=== PATIENT | male | born 1940 | race Caucasian/White ===

== ENCOUNTER → 2016-10-28 | Outpatient (CLI) | payer OTHER ==
[2014-07-14 08:11] VITALS: BP 186/79
--- NOTE | 2016-10-28 15:00 | KCIC ---
PROCEDURE PA and lateral chest radiographs 10/28/2016 HISTORY Shortness of breath. FINDINGS PA and lateral digital radiographs of the chest were obtained. Comparison study is dated 03/03/2016. The cardiac silhouette is normal in size. The thoracic aorta is mildly tortuous. Emphysematous changes are seen bilaterally. No acute pulmonary infiltrate is noted. No pneumothorax or pleural effusion is seen. Degenerative changes are seen involving the thoracic spine. Epmw-kj-wktfircp S-shaped scoliosis of the thoracolumbar spine is noted. IMPRESSION Emphysematous changes. No acute pulmonary infiltrate is seen. Electronically signed by: Dustin Mayen MD (Oct 28, 2016 14:59:59)
== END | disposition home or self-care (01) ==
LOC: KCIC 12:39
PROVIDERS: ATTEND Family Medicine
DX: J43.9 Emphysema, unspecified (principal)
CPT/HCPCS: 71020

== ENCOUNTER → 2016-11-23 | Outpatient (CLI) | payer OTHER ==
[2014-07-14 08:11] VITALS: BP 186/79
--- NOTE | 2016-11-23 11:08 | CARD ---
APPROVED REPORT EXAM: Two-dimensional and M-mode echocardiogram with Doppler and color Doppler. Other Information Quality : Average Rhythm : NSR INDICATION Dyspnea Chest Pain 2D DIMENSIONS RVDd2.4 (2.9-3.5cm)Left Atrium(2D)3.3 (1.6-4.0cm) IVSd1.1 (0.7-1.1cm)Aortic Root(2D)3.0 (2.0-3.7cm) LVDd3.1 (3.9-5.9cm)LVOT Diameter2.2 (1.8-2.4cm) PWd1.1 (0.7-1.1cm)LVDs2.1 (2.5-4.0cm) FS (%) 32.5 %SV24.3 ml LVEF(%)62.3 (>50%) Aortic Valve AoV Peak Husam.130.8cm/sAoV VTI21.9cm AO Peak GR.6.8mmHgLVOT Peak Husam.127.1cm/s LVOT VTI 23.21cmAO Mean GR.3mmHg SERGIO (VMAX)3.62ex8EEC (VTI)3.93cm2 Mitral Valve MV E Iradjcle20.8cm/sMV DECEL TZED042xe MV A Vlpkyvkg527.6cm/sMV E Mean Gr.2mmHg MV XXV470qrW/A Ratio0.6 MV A Fqvxnzrk42vaVOH (PHT)2.10cm2 TDI E/Lateral E'7.1E/Medial E'9.1 Pulmonary Valve PV Peak Xgbwrtcp715.9cm/sPV Peak Grad.5mmHg RVOT VTI12.5cm LEFT VENTRICLE The left ventricle is normal size. There is normal left ventricular wall thickness. Left ventricle sy stolic function is normal. The Ejection Fraction is 60-65%. There is normal LV segmental wall motion. Tissue Doppler imaging reveals mild left ventricular diastolic dysfunction. Transmitral Doppler flow pattern is Grade I-abnormal relaxation pattern. There is no ventricular septal defect visualized. RIGHT VENTRICLE The right ventricle is normal size. The right ventricular systolic function is normal. ATRIA The left atrium size is normal. The right atrium size is normal. The interatrial septum is intact wit h no evidence for an atrial septal defect or patent foramen ovale as noted on 2-D or Doppler imaging. AORTIC VALVE The aortic valve is normal in structure and function. The aortic valve is trileaflet. Doppler and Col or Flow revealed no significant aortic regurgitation. There is no significant aortic valvular stenosi s. MITRAL VALVE The mitral valve is normal in structure and function. There is no mitral valve stenosis. Doppler and Color Flow revealed no mitral valve regurgitation noted. TRICUSPID VALVE The tricuspid valve is normal in structure and function. Doppler and Color Flow revealed no tricuspid valve regurgitation noted. Unable to assess PA pressure. There is no tricuspid valve stenosis. PULMONIC VALVE The pulmonic valve is not well visualized. Doppler and Color Flow revealed no pulmonic valvular regur gitation. There is no pulmonic valvular stenosis. GREAT VESSELS The aortic root is normal in size. Pulmonary veins not well visualized. The IVC is normal in size and collapses >50% with inspiration. PERICARDIAL EFFUSION There is no evidence of significant pericardial effusion. Critical Notification Critical Value: No <Conclusion> Left ventricle systolic function is normal. The Ejection Fraction is 60-65%. There is normal LV segmental wall motion. Transmitral Doppler flow pattern is Grade I-abnormal relaxation pattern. There is no evidence of significant pericardial effusion.
== END | disposition home or self-care (01) ==
LOC: ECHO 08:50
PROVIDERS: ATTEND Family Medicine
DX: R06.02 Shortness of breath (principal); R07.9 Chest pain, unspecified; R06.00 Dyspnea, unspecified
CPT/HCPCS: 93306

== ENCOUNTER → 2016-11-30 | Outpatient (CLI) | payer OTHER ==
[2014-07-14 08:11] VITALS: BP 186/79
--- NOTE | 2016-11-30 15:17 | RAD ---
Examination: Ultrasound kidneys History: History of benign prostatic hypertrophy with lower urinary tract infection. Comparison: None available Findings: The right kidney measures 10.7 x 3.4 x 5.3 cm. The left kidney measures 11.3 x 4.9 x 5.2 cm. The urinary bladder is mildly distended. Cystic structures is identified in the bilateral kidneys with the largest measuring 3.1 cm in the right and 5.6 cm in the left probably cysts however the left kidney cystic structure likely contain septations within. The echogenicity in the bilateral kidneys appear slightly increased, likely due to medical renal disease. Impression: 1. Echogenic appearing bilateral kidneys likely medical renal disease. 2. Cystic structures identified in the bilateral kidneys probably cysts however the left cyst may contain septations. Follow-up examination is recommended to document stability.
== END | disposition home or self-care (01) ==
LOC: US 13:00
PROVIDERS: ATTEND Urology
DX: N40.1 Benign prostatic hyperplasia with lower urinary tract symptoms (principal)
CPT/HCPCS: 76770

== ENCOUNTER → 2017-02-05 | Outpatient (CLI) | payer MEDICARE, OTHER ==
[2014-07-14 08:11] VITALS: BP 186/79
[~2017-02-05] MED LIST: ASPI-482 PO; DOXA8TAB59 PO; HYDR12.58 PO; IOHEXOL 300 MG/ML 100ML VIAL. IV ONE
--- NOTE | 2017-02-05 15:12 | KCIC ---
CT abdomen and pelvis with and without contrast - urogram protocol Indication: Asymptomatic microscopic hematuria. Urinary frequency.. . Technique: Images obtained before, during and after contrast administration through both kidneys. Precontrast and delayed images through the pelvis. 3-D reconstructions of the urinary tracts. Comparison:None available Exposure: One or more of the following individualized dose reduction techniques were utilized for this examination: 1. Automated exposure control 2. Adjustment of the mA and/or kV according to patient size 3. Use of iterative reconstruction technique. FINDINGS: Kidneys: No evidence of hydronephrosis or obstructive calculus. Numerous low-density lesions identified within both kidneys. The largest is on the left parapelvic region and measures 5.1 cm. The larger lesions in both kidneys measure water density, compatible with cysts. Urinary bladder: Mild wall thickening of the distal urinary bladder. Prostate gland: 4.5 cm diameter with central calcifications. There is a midline defect, may be due to prior TURP. Lower thorax: Mild fibrosis in the lung bases. Mild coronary calcification. Pneumoperitoneum:No gross pneumoperitoneum. Liver: Only barely included on the dynamic images. Fully included on the precontrast and delayed images which are less accurate but demonstrate no obvious abnormality. Spleen: Not enlarged. Pancreas: Unremarkable Adrenals:No evidence of mass. Gallbladder: Surgically absent. Aorta: Calcified and ectatic without aneurysm. Renal arteries are calcified and mildly dilated, greater on the left, which measures 11 mm transverse. Lymph nodes: No significant enlargement GI tract: Small hiatal hernia. Colonic diverticulosis. No evidence of pericolonic acute inflammatory type change. No evidence of obstruction. Appendix not clearly visualized. Limited exam without oral contrast. Ascites: No gross ascites. Degenerative changes at the right hip with severe superior joint space narrowing and subchondral cysts. There appears to be a right hip joint effusion. Smaller left hip joint effusion. Thoracolumbar spondylosis with a mild scoliosis. IMPRESSION: 1. No evidence of urinary tract obstructive calculus. 2. Numerous renal lesions bilaterally, most compatible with cysts. 3. Midline defect of the prostate, presumably due to TURP. 4. Mild dilatation/ectasia of renal arteries left greater than right. 5. Right hip primary osteoarthritis. Hip joint effusions or synovitis, greater on the right. Electronically signed by: Moise Stern MD (02/05/2017 3:09 PM) [facility]
== END | disposition home or self-care (01) ==
LOC: KCIC CT 11:34
PROVIDERS: ATTEND Urology
DX: N28.1 Cyst of kidney, acquired (principal); M16.11 Unilateral primary osteoarthritis, right hip; M25.451 Effusion, right hip
CPT/HCPCS: 74178; 82565; Q9967

== ENCOUNTER 2018-05-13 12:24 | Emergency (ER) | payer OTHER ==
[~2018-05-13] VITALS: Ht 162.6 cm; Wt 72.6 kg
[~2018-05-13 12:24] MED LIST changes: -IOHEXOL 300 MG/ML 100ML VIAL. IV ONE
[2018-05-13 12:41] VITALS: BP 173/95
[2018-05-13] MEDS ORDERED: HYDROcodone/APAP 5/325MG 1 TAB TABLET PO ONE (14:00)
--- NOTE | 2018-05-13 14:16 | PHYS DOC ---
Past Medical History Past Medical History: GERD Past Surgical History: Cholecystectomy Alcohol Use: Rarely Drug Use: None Adult General Chief Complaint Chief Complaint: WRIST PAIN HPI HPI 77-year-old male presenting to the emergency department today with left wrist pain for 3 months. Pain comes and goes. It is worse when he tries to get out of his wheelchair. It is sharp and nonradiating. He has been trying oral pain medications at home without much relief. He did not take anything today. Review of systems is negative for fevers or chills. All other review of systems is negative unless otherwise noted in history of present illness. ED course: 77-year-old female presenting to the emergency department today with left wrist pain that is chronic. Vitals are unremarkable other than mild hypertension. On examination there is no evidence of trauma to the wrist. X- rays obtained which showed no acute fracture or dislocation. Scapholunate ligamentous injury of indeterminate age. I spoke with orthopedic surgery who asked me to place the patient in a wrist splint. Patient was placed in a wrist splint to follow-up with them on Wednesday. The patient has been examined and was not found to have an emergency medical condition. The patient was then discharged home in stable condition to follow up with their primary care physician over the next 2-3 days. They were to return if their symptoms worsened or if they were concerned for any reason. They were also instructed to return to the emergency department if they were unable to get the recommended and appropriate follow-up. [id number]-fv-hczm discharge instructions and return precautions were given. Patient's questions were answered to their satisfaction. Patient is comfortable with plan. Review of Systems Review of Systems SEE ABOVE. Current Medications Current Medications Current Medications Medications (Trade) Dose Ordered Sig/[facility] Start Time Stop Time Status Last Admin Dose Admin Acetaminophen/ Hydrocodone Bitart (Lortab 5/325) 2 tab 1X ONCE 05/13/18 14:00 05/13/18 14:03 DC 05/13/18 14:14 2 TAB Allergies Allergies Allergies Coded Allergies Type Severity Reaction Last Updated Verified No Known Drug Allergies 07/14/14 No Physical Exam Physical Exam SEE ABOVE Constitutional: Well developed, well nourished, no acute distress, non-toxic appearance. [] HENT: Normocephalic, atraumatic, bilateral external ears normal, oropharynx moist, no oral exudates, nose normal. Eyes: PERRLA, EOMI, conjunctiva normal, no discharge. [] Neck: Normal range of motion, no tenderness, supple, no stridor. Cardiovascular:Heart rate regular rhythm, no murmur Lungs & Thorax: Bilateral breath sounds clear to auscultation Abdomen: Bowel sounds normal, soft, no tenderness, no masses, no pulsatile masses. Skin: Warm, dry, no erythema, no rash. Back: No tenderness, no CVA tenderness. Extremities: The patient's left wrist is mildly tender to palpation. Mild pain with acid range of motion. The patient is neurovascularly intact with 2 second cap refill and normal motor sensory function of the left hand. Nontender at the elbow and shoulder proximally. The remainder the extremities are nontender with normal range of motion and neurovascularly intact. Neurologic: Alert and oriented X 3, normal motor function, normal sensory function, no focal deficits noted. Psychologic: Affect normal, judgement normal, mood normal. Current Patient Data Vital Signs Vital Signs Date Time Temp Pulse Resp B/P (MAP) Pulse Ox O2 Delivery O2 Flow Rate FiO2 05/13/18 14:14 16 05/13/18 12:41 98.5 83 173/95 (121) 95 Room Air 98.5 EKG EKG [] Radiology/Procedures Radiology/Procedures [] Course & Med Decision Making Course & Med Decision Making Pertinent Labs and Imaging studies reviewed. (See chart for details) [] Dragon Disclaimer Dragon Disclaimer This electronic medical record was generated, in whole or in part, using a voice recognition dictation system. Departure Departure Impression: Primary Impression: Wrist pain Disposition: HOME, SELF-CARE Condition: STABLE Referrals: ADRIAN WEIR MD (PCP) Additional Instructions: Thank you for allowing us to participate in your care today. Return to the emergency department you have any new or worsening symptoms, or if you are concerned for any reason. Return to emergency department if you have any new or concerning symptoms including but not limited to fever, chills, nausea, vomiting, intractable pain, any new rashes, chest pain, shortness of air , uncontrolled bleeding, difficulty breathing, and/or vision loss. Follow up with ortho surgery on Wednesday. Call your Primary Doctor tomorrow and inform them of your visit today. If you do not have a primary care provider we are happy to provide you with a list of our primary care providers contact information. This condition should be evaluated by your primary care physician and any recommended consulting services for continued management within 2-3 days after discharge. If at any time, you are having difficulty getting into your primary care doctor or a specialist, return to the emergency department. You may have been prescribed medication or given medication in the emergency department that can change in your level of thinking and ability to operate machinery. Many prescribed medications can cause this. Some commonly prescribed medications include hydrocodone, ativan, and benadryl. Be sure to check with your pharmacist and ask if the medications you've prescribed can affect your level of consciousness. I recommend not operating heavy machinery or driving while on medication such as these. Scripts Hydrocodone Bit/Acetaminophen (HYDROCODONE-APAP 5-325 ) 1 Each Tablet 1 TAB PO PRN Q8HRS PRN for SEVERE PAIN, #8 TAB 0 Refills Prov: DAVIE MAURICE MD 05/13/18 DAVIE MAURICE MD May 13, 2018 14:16
--- NOTE | 2018-05-13 14:21 | RAD ---
Left wrist, 3 views, 05/13/2018: HISTORY: Wrist pain There is patchy bony demineralization. No fracture is identified. There is widening of the distance between the scaphoid and lunate bones compatible with ligamentous injury of indeterminate age. There are mild scattered degenerative changes including the first CMC joint. Moderate subcutaneous edema is evident. Arterial calcifications are present. IMPRESSION: 1. Patchy bony demineralization. 2. Mild degenerative change. 3. Evidence of scapholunate ligament injury of indeterminate age. Electronically signed by: Favian Houser MD (05/13/2018 2:18 PM) [facility]
[2018-05-13] MEDS ORDERED: HYDR-2758 PO (15:21)
== END 2018-05-13 17:29 | disposition home or self-care (01) ==
LOC: ER 12:24
DX: M25.532 Pain in left wrist (principal); I10 Essential (primary) hypertension; K21.9 Gastro-esophageal reflux disease without esophagitis
CPT/HCPCS: 73110; 99284

== ENCOUNTER 2020-01-26 09:20 | Inpatient (IN) | payer MEDICARE, OTHER ==
[~2020-01-26] VITALS: Ht 160 cm; Wt 66.2 kg
[~2020-01-26 09:20] MED LIST changes: +GUAI100L12 PO; +HYDR-2761 PO; +HYDR-2769 PO; +OSEL75CA PO
--- NOTE | 2020-01-26 10:33 | PHYS DOC ---
Past Medical History Past Medical History: Anxiety, GERD, Hypertension, Other Additional Past Medical Histor: LT FIB FX, R femur fx, gout, paraplegia, post polio syndrome, OA, Past Surgical History: Cholecystectomy, Other Additional Past Surgical Histo: L FEMUR ORIF Smoking Status: Former Smoker Alcohol Use: Occasionally Drug Use: None General Adult EDM: Chief Complaint: LOWER EXT PAIN HPI: HPI: 79-year-old male presenting the emergency department today with left thigh pain. Started today. He has a history of a fracture in his left thigh that he reports they treated medically without surgery. Is been about 8 weeks since he had his fracture and has been healing well. He has a longstanding history of polio. He woke up this morning with the pain in his thigh. He denies any numbness or weakness in his left or right foot. He denies any pain on his right side. The pain is in the thigh and radiates into the left hip and knee. It is a sharp shooting pain that is moderate nonradiating without leaving factors. He denies any recent injuries. Review of systems negative for numbness weakness tingling headache chest pain shortness of breath fevers cough. All other review of systems negative. ED course: 79-year-old male presenting with left-sided leg pain/thigh pain. On arrival he is mildly tachycardic at about 110. Afebrile. Satting well on room air. On examination he is well-appearing and nontoxic. He has some tenderness along the left mid to distal thigh. Normal range of motion the knee. Not able to move the left hip due to pain. Palpable pulse distally which is a cap refill. Nontender distal leg with 2-second cap refill. The right leg is nontender with normal range of motion of the joints. X-ray shows previously known fracture. His pain is directly where his fracture is which was sustained a few months ago. We will admit the patient for pain control and have orthopedic surgery see the patient to clarify the patient's plan. Heart Score: Risk Factors: Risk Factors: DM, Current or recent (<one month) smoker, HTN, HLP, family history of CAD, obesity. Risk Scores: Score 0 - 3: 2.5% MACE over next 6 weeks - Discharge Home Score 4 - 6: 20.3% MACE over next 6 weeks - Admit for Clinical Observation Score 7 - 10: 72.7% MACE over next 6 weeks - Early Invasive Strategies Allergies: Allergies: Allergies Coded Allergies Type Severity Reaction Last Updated Verified No Known Drug Allergies 07/14/14 No Physical Exam: PE: Constitutional: Well developed, well nourished, no acute distress, non-toxic appearance. [] HENT: Normocephalic, atraumatic, bilateral external ears normal, oropharynx moist, no oral exudates, nose normal. [] Eyes: PERRLA, EOMI, conjunctiva normal, no discharge. [] Neck: Normal range of motion, no tenderness, supple, no stridor. [] Cardiovascular:Heart rate regular rhythm, no murmur [] Lungs & Thorax: Bilateral breath sounds clear to auscultation [] Abdomen: Bowel sounds normal, soft, no tenderness, no masses, no pulsatile masses. [] Skin: Warm, dry, no erythema, no rash. [] Back: No tenderness, no CVA tenderness. [] Extremities: ABOVE Neurologic: Alert and oriented X 3, normal motor function, normal sensory function, no focal deficits noted. [] Psychologic: Affect normal, judgement normal, mood normal. [] Current Patient Data: Vital Signs: Vital Signs Date Time Temp Pulse Resp B/P (MAP) Pulse Ox O2 Delivery O2 Flow Rate FiO2 01/26/20 09:20 98.6 111 20 144/94 (111) 98 Room Air 98.6 EKG: EKG: [] Radiology/Procedures: Radiology/Procedures: [] Course & Med Decision Making: Course & Med Decision Making Pertinent Labs and Imaging studies reviewed. (See chart for details) [] Dragon Disclaimer: Dragon Disclaimer: This electronic medical record was generated, in whole or in part, using a voice recognition dictation system. Departure Departure Impression: Primary Impression: Closed fracture of right distal femur Disposition: ADMITTED INPATIENT Admitting Physician: HIMS Condition: STABLE Referrals: ADRIAN WEIR MD (PCP) Justicifation of Admission Dx: Justifications for Admission: Justification of Admission Dx: Yes Fracture: Fracture DAVIE MAUIRCE MD Jan 26, 2020 10:33
[2020-01-26 11:07] LABS: BASO % 0 % (0-3); EOS % 0 % (0-3); HEMATOCRIT 39.7 % (39.0-53.0); HEMOGLOBIN 13.8 g/dL (13.0-17.5); LYMPH # 1.2 x10^3/uL (1.0-4.8); LYMPH % 11 % (24-48); MEAN CORPUSCULAR HEMOGLOBIN 34 pg (25-35); MEAN CORPUSCULAR HGB CONC 35 g/dL (31-37); MEAN CORPUSCULAR VOLUME 98 fL (79-100); MONO # 0.7 x10^3/uL (0.0-1.1); MONO % 7 % (0-9); NEUT % 82 % (31-73); PLATELET COUNT 197 x10^3/uL (140-400); RED BLOOD COUNT 4.06 x10^6/uL (4.30-5.70); RED CELL DISTRIBUTION WIDTH 14.7 % (11.5-14.5); WHITE BLOOD COUNT 10.9 x10^3/uL (4.0-11.0)
[2020-01-26 11:17] LABS: CALCIUM 9.3 mg/dL (8.5-10.1); GFR 72.3; POTASSIUM 3.9 mmol/L (3.5-5.1)
[2020-01-26 11:23] LABS: ALBUMIN 3.1 g/dL (3.4-5.0); ALBUMIN/GLOBULIN RATIO 0.6 (1.0-1.7); TOTAL BILIRUBIN 1.3 mg/dL (0.2-1.0); TOTAL PROTEIN 7.9 g/dL (6.4-8.2)
--- NOTE | 2020-01-26 11:39 | RAD ---
Examination: Frontal view the pelvis with 2 views the left hip, 2 views of the left femur and 2 views of the left femur HISTORY: History of left hip pain, prior fracture COMPARISON: 11/29/2019. Findings/ impression: The bilateral femoral heads within the acetabula. Mild displaced Fracture of the distal femoral diaphysis in the supracondylar region likely chronic fracture. Nondisplaced fracture of the proximal tibia identified with surrounding sclerosis likely old fracture. Electronically signed by: Memo Chu MD (01/26/2020 11:37 AM) [id number]
[2020-01-26 15:10] VITALS: BP 150/77
[2020-01-26] MEDS: fentaNYL PF VIAL 100 MCG/2 ML VIAL IV PRN ×3 (15:21→20:00)
[2020-01-26 19:50] VITALS: BP 118/73
[2020-01-26 23:00] VITALS: BP 107/59
[2020-01-26] MEDS: fentaNYL PF VIAL 100 MCG/2 ML VIAL IVP PRN (23:05)
[2020-01-27 03:00] VITALS: BP 106/63
[2020-01-27] MEDS: fentaNYL PF VIAL 100 MCG/2 ML VIAL IVP PRN ×6 (03:00→19:37)
[2020-01-27 07:15] VITALS: BP 125/65
--- NOTE | 2020-01-27 09:43 | PDOC2 ---
CONSULT Date of Consult Date of Consult DATE: 01/27/20 TIME: 09:39 Reason for Consult Reason for Consult: Left distal femur fracture Referring Physician Referring Physician: Foster Identification/Chief Complaint Chief Complaint Left knee pain Source Source: Patient History of Present Illness Reason for Visit: Patient is a pleasant 79-year-old paraplegic who had seen in consultation a short while ago for a left distal femur fracture. He developed pain with this when he was at home and was unable to manage the pain and take care of himself at home so he was brought in for admission. He tells me that his knee is quite sore and is having difficulty transferring and sitting up secondary to his knee pain. He denies any new injuries. Past Medical History Cardiovascular: No pertinent hx Pulmonary: No pertinent hx, COPD CENTRAL NERVOUS SYSTEM: Other GI: No pertinent hx Heme/Onc: No pertinent hx Musculoskeletal: Muscle atrophy, Weakness, Swelling, Other Rheumatologic: No pertinent hx Infectious disease: Other Past Surgical History Past Surgical History: No pertinent history Family History Family History: No Significant, High Cholestrol, Hypertension Social History ALCOHOL: none Drugs: None Lives: Alone Domestic Violence: Neg Current Medications Current Medications Current Medications Fentanyl Citrate (Fentanyl 2ml Vial) 50 mcg PRN Q30MIN PRN IV SEVERE PAIN 7-10 Last administered on 01/26/20at 20:00; Start 01/26/20 at 12:00; Stop 01/26/20 at 20:00; Status DC Fentanyl Citrate (Fentanyl 2ml Vial) 75 mcg PRN Q3HRS PRN IVP Pain Last adm inistered on 01/27/20at 07:06; Start 01/26/20 at 20:30 Active Scripts Active Guaifenesin 100 Mg/5 Ml Liquid 200 Mg PO PRN Q4HRS PRN 5 Days Hydrocodone-Apap 10-325 (Hydrocodone Bit/Acetaminophen) 1 Tab Tablet 1 Tab PO PRN Q3HRS PRN 30 Days Reported Hydrochlorothiazide Tablet (Hydrochlorothiazide) 12.5 Mg Tablet 1 Tab PO DAILY Doxazosin Mesylate 8 Mg Tablet 1 Tab PO DAILY Allergies Allergies: Coded Allergies: No Known Drug Allergies (Unverified , 07/14/14) ROS General: No: Chills, Night Sweats, Fatigue, Malaise, Appetite, Other PSYCHOLOGICAL ROS: No: Anxiety, Behavioral Disorder, Concentration difficultie, Decreased libido, Depression, Disorientation, Hallucinations, Hostility, Irritablity, Memory difficulties, Mood Swings, Obsessive thoughts, Physical abuse, Sexual abuse, Sleep disturbances, Suicidal ideation, Other Eyes: No Blurry vision, No Decreased vision, No Double vision, No Dry eyes, No Excessive tearing, No Eye Pain, No Itchy Eyes, No Loss of vision, No Photophobia, No Scotomata, No Uses contacts, No Uses glasses, No Other HEENT: No: Heacaches, Visual Changes, Hearing change, Nasal congestion, Nasal discharge, Oral lesions, Sinus pain, Sore Throat, Epistaxis, Sneezing, Snoring, Tinnitus, Vertigo, Vocal changes, Other ALLERGY AND IMMUNOLOGY: No: Hives, Insect Bite Sensitivity, Itchy/Watery Eyes, Nasal Congestion, Post Nasal Drip, Seasonal Allergies, Other Hematological and Lymphatic: No: Bleeding Problems, Blood Clots, Blood Transfusions, Brusing, Night Sweats, Pallor, Swollen Lymph Nodes, Other ENDOCRINE: No: Breast Changes, Galactorrhea, Hair Pattern Changes, Hot Flashes, Malaise/lethargy, Mood Swings, Palpitations, Polydipsia/polyuria, Skin Changes, Temperature Intolerance, Unexpected Weight Changes, Other Respiratory: No: Cough, Hemoptysis, Orthopnea, Pleuritic Pain, Shortness of breath, SOB with excertion, Sputum Changes, Stridor, Tachypnea, Wheezing, Other Cardiovascular: No Chest Pain, No Palpitations, No Orthopnea, No Paroxysmal Noc. Dyspnea, No Edema, No Lt Headedness, No Other Gastrointestinal: No Nausea, No Vomiting, No Abdominal Pain, No Diarrhea, No Constipation, No Melena, No Hematochezia, No Other Genitourinary: No Dysuria, No Frequency, No Incontinence, No Hematuria, No Retention, No Discharge, No Urgency, No Pain, No Flank Pain, No Other, No , No , No , No , No , No , No Musculoskeletal: Yes Gait Disturbance Neurological: Yes Gait Disturbance, Yes Numbness/Tingling Skin: No Dry Skin, No Eczema, No Hair Changes, No Lumps, No Mole Changes, No Mottling, No Nail Changes, No Pruritus, No Rash, No Skin Lesion Changes, No Other, No Acne Physical Exam General: Alert, Oriented X3 HEENT: Atraumatic, EOMI Lungs: Other (Respirations unlabored with symmetric chest) Heart: Regular rate Abdomen: Soft, No tenderness Extremities: Other (Mild edema around ankles) Skin: No rashes Neuro: Normal speech, Strength at 5/5 X4 ext, Sensation intact, Other (Normal motor and sensation present bilateral upper extremities) Psych/Mental Status: Mental status NL, Mood NL MUSCULOSKELETAL: Other (He does have some mild swelling and tenderness around his left knee on exam today.) Vitals VITALS Vital Signs Date Time Temp Pulse Resp B/P (MAP) Pulse Ox O2 Delivery O2 Flow Rate FiO2 01/27/20 07:36 Room Air 01/27/20 07:15 98.7 79 16 125/65 (85) 93 98.7 Labs Labs Laboratory Tests Test 01/26/20 10:50 White Blood Count 10.9 x10^3/uL (4.0-11.0) Red Blood Count 4.06 x10^6/uL (4.30-5.70) Hemoglobin 13.8 g/dL (13.0-17.5) Hematocrit 39.7 % (39.0-53.0) Mean Corpuscular Volume 98 fL (79-100) Mean Corpuscular Hemoglobin 34 pg (25-35) Mean Corpuscular Hemoglobin Concent 35 g/dL (31-37) Red Cell Distribution Width 14.7 % (11.5-14.5) Platelet Count 197 x10^3/uL (140-400) Neutrophils (%) (Auto) 82 % (31-73) Lymphocytes (%) (Auto) 11 % (24-48) Monocytes (%) (Auto) 7 % (0-9) Eosinophils (%) (Auto) 0 % (0-3) Basophils (%) (Auto) 0 % (0-3) Neutrophils # (Auto) 9.0 x10^3/uL (1.8-7.7) Lymphocytes # (Auto) 1.2 x10^3/uL (1.0-4.8) Monocytes # (Auto) 0.7 x10^3/uL (0.0-1.1) Eosinophils # (Auto) 0.0 x10^3/uL (0.0-0.7) Basophils # (Auto) 0.0 x10^3/uL (0.0-0.2) Sodium Level 134 mmol/L (136-145) Potassium Level 3.9 mmol/L (3.5-5.1) Chloride Level 97 mmol/L (98-107) Carbon Dioxide Level 27 mmol/L (21-32) Anion Gap 10 (6-14) Blood Urea Nitrogen 18 mg/dL (8-26) Creatinine 1.0 mg/dL (0.7-1.3) Estimated GFR (Cockcroft-Gault) 72.3 BUN/Creatinine Ratio 18 (6-20) Glucose Level 131 mg/dL (70-99) Calcium Level 9.3 mg/dL (8.5-10.1) Total Bilirubin 1.3 mg/dL (0.2-1.0) Aspartate Amino Transf (AST/SGOT) 30 U/L (15-37) Alanine Aminotransferase (ALT/SGPT) 22 U/L (16-63) Alkaline Phosphatase 165 U/L (46-116) Total Protein 7.9 g/dL (6.4-8.2) Albumin 3.1 g/dL (3.4-5.0) Albumin/Globulin Ratio 0.6 (1.0-1.7) Laboratory Tests Test 01/26/20 10:50 White Blood Count 10.9 x10^3/uL (4.0-11.0) Red Blood Count 4.06 x10^6/uL (4.30-5.70) Hemoglobin 13.8 g/dL (13.0-17.5) Hematocrit 39.7 % (39.0-53.0) Mean Corpuscular Volume 98 fL (79-100) Mean Corpuscular Hemoglobin 34 pg (25-35) Mean Corpuscular Hemoglobin Concent 35 g/dL (31-37) Red Cell Distribution Width 14.7 % (11.5-14.5) Platelet Count 197 x10^3/uL (140-400) Neutrophils (%) (Auto) 82 % (31-73) Lymphocytes (%) (Auto) 11 % (24-48) Monocytes (%) (Auto) 7 % (0-9) Eosinophils (%) (Auto) 0 % (0-3) Basophils (%) (Auto) 0 % (0-3) Neutrophils # (Auto) 9.0 x10^3/uL (1.8-7.7) Lymphocytes # (Auto) 1.2 x10^3/uL (1.0-4.8) Monocytes # (Auto) 0.7 x10^3/uL (0.0-1.1) Eosinophils # (Auto) 0.0 x10^3/uL (0.0-0.7) Basophils # (Auto) 0.0 x10^3/uL (0.0-0.2) Sodium Level 134 mmol/L (136-145) Potassium Level 3.9 mmol/L (3.5-5.1) Chloride Level 97 mmol/L (98-107) Carbon Dioxide Level 27 mmol/L (21-32) Anion Gap 10 (6-14) Blood Urea Nitrogen 18 mg/dL (8-26) Creatinine 1.0 mg/dL (0.7-1.3) Estimated GFR (Cockcroft-Gault) 72.3 BUN/Creatinine Ratio 18 (6-20) Glucose Level 131 mg/dL (70-99) Calcium Level 9.3 mg/dL (8.5-10.1) Total Bilirubin 1.3 mg/dL (0.2-1.0) Aspartate Amino Transf (AST/SGOT) 30 U/L (15-37) Alanine Aminotransferase (ALT/SGPT) 22 U/L (16-63) Alkaline Phosphatase 165 U/L (46-116) Total Protein 7.9 g/dL (6.4-8.2) Albumin 3.1 g/dL (3.4-5.0) Albumin/Globulin Ratio 0.6 (1.0-1.7) Images Images X-rays were reviewed Assessment/Plan Assessment/Plan Given his pain and inability to provide self-care, we discussed rehab placement, bracing, and operative intervention. While discussing the potential risks of surgery as well as the benefits, he tells me that he is uncertain how he would like to proceed which I think is is reasonable. Given the possibility of bleeding complications, failure of healing of the bone with surgery, need for additional surgery, infection and possible sequela including amputation, among others, he would like to think about it today and we will go from there. KURT ABDUL II, MD Jan 27, 2020 09:42
[2020-01-27 11:00] VITALS: BP 123/71
--- NOTE | 2020-01-27 12:23 | PDOC ---
Justicifation of Admission Dx: Justifications for Admission: Justification of Admission Dx: Yes Fracture: Fracture ADRIAN WEIR MD Jan 27, 2020 12:23
--- NOTE | 2020-01-27 12:25 | PDOC ---
Provider Note Provider Note [id number] Justicifation of Admission Dx: Justifications for Admission: Justification of Admission Dx: Yes Fracture: Fracture ADRIAN WEIR MD Jan 27, 2020 12:25
--- NOTE | 2020-01-27 12:33 | HP ---
ADMIT DATE: 01/26/2020 CHIEF COMPLAINT: Left leg pain. HISTORY OF PRESENT ILLNESS: The patient is a 79-year-old white male with polio and recent fracture of the left distal femur, left rehab and after one day, he had increasingly severe pain and came into the ER for evaluation. X-ray showed evidence of fracture of the distal left femur at the diaphysis with mild displacement. The knee showed no changes and there was no fracture seen in the hip as well. Dr. Balbuena has seen in consultation and has recommended surgery because of worsening pain despite conservative management. The patient is making that decision at this point. PAST MEDICAL HISTORY: Well documented in the old records. ALLERGIES: No allergies are noted. SOCIAL HISTORY: Lives alone, moderate alcohol intake. He is a nonsmoker. FAMILY HISTORY: Unremarkable. REVIEW OF SYSTEMS: No other complaints. OBJECTIVE: ENT: Very poor dentition, otherwise unremarkable. NECK: No masses, nodes or bruits. LUNGS: Clear, without tachypnea. CARDIOVASCULAR: Regular rate, mild tachycardia. No murmur. ABDOMEN: Soft, benign and nontender. EXTREMITIES: He is very tender over the distal left thigh and knee. There is some general swelling. There are no acute visual changes or skin breakdown. NEUROLOGIC: He is paraplegic due to polio, alert, oriented, really uncomfortable with pain. ASSESSMENT: Poorly healing left distal femur fracture with increasing pain. PLAN: He is strongly considering surgical intervention at this time. ADRIAN WEIR MD DR: VALENTIN/salina JOB#: [id number] / [id number]
[2020-01-27] MEDS: hydroCHLOROthiazide 12.5 MG CAPSULE PO SCH (13:06)
[2020-01-27] MEDS: DOXAZOSIN MESYLATE 4 MG TABLET. PO SCH (13:07)
[2020-01-27] MEDS: HYDROcodone/APAP 10/325 1 TAB TABLET PO PRN ×3 (14:37→22:45)
[2020-01-27 15:00] VITALS: BP 123/72
--- NOTE | 2020-01-27 17:12 | NUR ---
COVID test specimen collected and taken down to lab.
[2020-01-27 19:00] VITALS: BP 118/65
[2020-01-27] MEDS: KETOROLAC 30 MG/ML VIAL. IVP PRN (22:45)
[2020-01-27 23:00] VITALS: BP 120/64
[2020-01-28] MEDS: fentaNYL PF VIAL 100 MCG/2 ML VIAL IVP PRN ×8 (00:18→22:44)
[2020-01-28 03:00] VITALS: BP 101/46
[2020-01-28] MEDS: KETOROLAC 30 MG/ML VIAL. IVP PRN (04:45)
[2020-01-28] MEDS ORDERED: ceFAZolin SODIUM IV Push 1 GM VIAL. IVP ONE (07:00)
[2020-01-28 07:59] VITALS: BP 106/46
[2020-01-28] MEDS: hydroCHLOROthiazide 12.5 MG CAPSULE PO SCH (09:00)
[2020-01-28] MEDS: DOXAZOSIN MESYLATE 4 MG TABLET. PO SCH (09:00)
--- NOTE | 2020-01-28 09:32 | PDOC ---
Provider Note Provider Note still lots of pain fron sc fx- bp low so hold hctz- likely for OR today, start iv fluid now Justicifation of Admission Dx: Justifications for Admission: Justification of Admission Dx: Yes Fracture: Fracture ADRIAN WEIR MD Jan 28, 2020 09:32
[2020-01-28] MEDS: POTASSIUM CL 20MEQ D5-0.45NACL 1,000 ML IV SCH ×2 (09:59→19:37)
[2020-01-28 11:59] VITALS: BP 92/45
[2020-01-28 15:59] VITALS: BP 102/53
[2020-01-28 19:00] VITALS: BP 100/47
[2020-01-28 23:04] VITALS: BP 135/79
[2020-01-29] VITALS (12 sets, daily range): BP systolic 115–146; BP diastolic 52–70
[2020-01-29] MEDS: fentaNYL PF VIAL 100 MCG/2 ML VIAL IVP PRN ×4 (02:08→23:35)
[2020-01-29] MEDS: KETOROLAC 30 MG/ML VIAL. IVP PRN ×2 (03:50→08:23)
[2020-01-29] MEDS ORDERED: IV RINGERS,LACTATED 1000ML 1,000 ML IV SCH (08:00)
[2020-01-29] MEDS ORDERED: ONDANSETRON PF 4 MG/2 ML VIAL. IV PRN (08:15)
[2020-01-29] MEDS ORDERED: PROCHLORPERAZINE 10 MG/2 ML VIAL. IV PRN (08:15)
[2020-01-29] MEDS ORDERED: MORPHINE SULFATE 2 MG/ML VIAL. IV PRN (08:15)
[2020-01-29] MEDS ORDERED: fentaNYL PF VIAL 100 MCG/2 ML VIAL IV PRN (08:15)
[2020-01-29] MEDS: DOXAZOSIN MESYLATE 4 MG TABLET. PO SCH (08:23)
[2020-01-29] MEDS ORDERED: PANTOPRAZOLE 40 MG TABLET.DR. PO SCH (08:30)
--- NOTE | 2020-01-29 08:35 | PDOC ---
Provider Note Provider Note stable post op, labs ok, cont same care, dvt proph Justicifation of Admission Dx: Justifications for Admission: Justification of Admission Dx: Yes Fracture: Fracture ADRIAN WEIR MD Jan 29, 2020 08:35
--- NOTE | 2020-01-29 10:06 | NUR ---
To surgery per bed, voided prior to transfer, alert/oriented.
[2020-01-29] MEDS ORDERED: PROPOFOL 10 MG/ML (20ML) VIAL. IV ONE (10:19)
[2020-01-29] MEDS ORDERED: DEXAMETHASONE SOD PHOS 4 MG/ML VIAL ONE (10:19)
[2020-01-29] MEDS ORDERED: LIDOCAINE 2% PF 5 ML VIAL. ONE (10:19)
[2020-01-29] MEDS ORDERED: ONDANSETRON PF 4 MG/2 ML VIAL. ONE (10:19)
[2020-01-29] MEDS ORDERED: ceFAZolin SODIUM IV Push 1 GM VIAL. IVP ONE (10:24)
[2020-01-29] MEDS ORDERED: fentaNYL PF VIAL 100 MCG/2 ML VIAL ONE (10:48)
[2020-01-29] MEDS ORDERED: PHENYLEPHRINE in 0.9% NACL PF 1 MG/10 ML SYRINGE. IV ONE (10:48)
[2020-01-29] MEDS ORDERED: BUPIVACAINE MPF 0.5% 30 ML VIAL. ONE (11:10)
[2020-01-29] MEDS ORDERED: LIDOCAINE 1% Multi-Dose 20 ML VIAL. ONE (11:10)
--- NOTE | 2020-01-29 11:24 | NUR ---
SW following. Discussed with RN, pt from home alone. Pt having surgery today for femur fracture. COVID-19 negative - PT/OT after surgery. SW will continue to follow.
[2020-01-29] MEDS: ceFAZolin SODIUM IV Push 1 GM VIAL. IVP SCH ×2 (11:28→23:55)
[2020-01-29] MEDS ORDERED: MORPHINE SULFATE 5 MG, KETOROLAC 30MG VIAL 30 MG, ROPIVacaine 0.5% PF 60 ML, EPINEPHrin... INT ART ONE (11:51)
[2020-01-29] MEDS ORDERED: SEVOFLURANE 61 TO 120 MINUTES. IH ONE (12:16)
[2020-01-29] MEDS ORDERED: ePHEDrine PF IN SALINE 50 MG/10 ML SYRINGE. IV ONE (12:16)
--- NOTE | 2020-01-29 12:45 | PDOC4 ---
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 He is nonambulatory secondary to polio. He has developed pain over his left distal femoral fracture which he initially sustained about 2 months ago. Because of his pain and inability to sit up and care for himself, we discussed proceeding with the above surgery and he wished to proceed. Description of procedure: Patient was greeted in the preoperative area by myself or the correct extremities verified and marked. He was taken to the operative suite, his antibiotics were started as he was brought back. Once in the operating room, he had successful induction of a general anesthetic and was then transferred gently supine to the operating table with a bump under his hip, he was secured to the bed with all pressure points padded. Left lower extremity was then prepped and draped in our usual sterile fashion we conducted our standard preoperative timeout. After this, I palpated for surface anatomy and bill a line on the skin for my planned incision referencing his lateral epicondyle and femoral shaft. Sterile tourniquet insufflated to 250 mmHg. Skin was incised with a scalpel and I dissected subcutaneous tissue with electrocautery, cauterizing bleeders as they were encountered. I incised the IT band in line with the skin incision. I placed my self-retaining retractors, and elevated the vastus lateralis off of the lateral intermuscular septum. His tissue was markedly atrophic and fatty. After this, I had an blood bank assistant pulled traction on the leg while I manipulated it as well to provide distraction at the fracture site after I debrided it with a rondure. I then placed some drill holes and through the fracture site to stimulate some bleeding. I then placed in size my plate against bone, confirming appropriate reduction and hardware position under biplanar fluoroscopy. I placed a K wire followed by a nonlocking screw proximal and distal to the fracture site followed by filling the remainder of the holes distally with locking screws. I added another locking screw proximal to the fracture site and one more nonlocking screw at the most proximal screw hole percutaneously. After this, I took my final images and was satisfied with hardware position and fracture reduction. The operative field was thoroughly irrigated. Tourniquet was let down and hemostasis was ensured. I placed a 1/8 inch Hemovac exiting superolaterally around his knee for this procedure. I then closed the fascia with [id number] #1 Vicryl followed by inverted interrupted 2-0 for subcutaneous tissue and tara for skin. I injected local anesthetic mixture into the emily-incisional soft tissues. All counts correct x2 prior to wound closure. At the conclusion, the leg was cleansed and dried and Xeroform followed by gauze, ABDs, soft roll and an Misael wrap were applied. Patient tolerated surgery well. [facility] he is awake from anesthesia transferred gently supine to the hospital bed and taken to the PACU in stable and extubated condition. Postoperative plan is to readmit him to the floor under the care of his primary care provider. I will follow along. He will be nonweightbearing left lower extremity. He received DVT and antibiotic prophy laxis GONZALO ABDUL II, MD Jan 29, 2020 12:45
[2020-01-29] MEDS: fentaNYL PF VIAL 100 MCG/2 ML VIAL IV PRN ×4 (13:05→14:17)
[2020-01-29] MEDS: HYDROmorphone 2 MG/ML VIAL IV PRN ×4 (13:20→14:07)
[2020-01-29] MEDS: HYDROcodone/APAP 10/325 1 TAB TABLET PO PRN ×2 (15:43→21:58)
[2020-01-29] MEDS: POTASSIUM CL 20MEQ D5-0.45NACL 1,000 ML IV SCH (15:45)
[2020-01-29] MEDS: PANTOPRAZOLE 40 MG TABLET.DR. PO SCH (21:05)
[2020-01-30] MEDS: fentaNYL PF VIAL 100 MCG/2 ML VIAL IVP PRN (02:48)
[2020-01-30] MEDS: POTASSIUM CL 20MEQ D5-0.45NACL 1,000 ML IV SCH ×2 (02:49→13:11)
[2020-01-30] MEDS: ceFAZolin SODIUM IV Push 1 GM VIAL. IVP SCH (06:00)
[2020-01-30 07:00] VITALS: BP 119/55
[2020-01-30] MEDS: DOXAZOSIN MESYLATE 4 MG TABLET. PO SCH (07:59)
[2020-01-30] MEDS: PANTOPRAZOLE 40 MG TABLET.DR. PO SCH (07:59)
[2020-01-30] MEDS: ENOXAPARIN 40 MG/0.4 ML SYRINGE. SQ SCH (07:59)
[2020-01-30] MEDS: HYDROcodone/APAP 10/325 1 TAB TABLET PO PRN ×4 (08:00→21:58)
--- NOTE | 2020-01-30 08:01 | PDOC ---
Provider Note Provider Note vss, no temp, feels better - labs ok- ernestine need rehab, lovenox for now Justicifation of Admission Dx: Justifications for Admission: Justification of Admission Dx: Yes Fracture: Fracture ADRIAN WEIR MD Jan 30, 2020 08:01
--- NOTE | 2020-01-30 10:04 | NUR ---
PRICILA following. Discussed with RN, pt had surgery yesterday (01/29/2020). PT/OT ordered this morning by RN. PRICILA will continue to follow for discharge recommendations. If pt requiring SNU, insurance will have to give auth. Pt has been to [facility] in the past. Addendum: 01/30/20 at 1545 by JERMAIN MCNULTY Pt reported to PT, Dr. Balbuena does not want him to move his leg for two weeks so it can heal. PRICILA discussed with RN, everyone is trying to get clarification from Dr. Balbuena. Pt's insurance will not approve SNU without therapy notes. PRICILA met with pt (no isolation precautions at the time), pt agreeable to go to a facility to get help to not have to use his leg - whether it be LTC and then transition to SNU. Pt agreeable to [facility] and back up option of [facility]. PRICILA spoke with Irma at [facility], they said there needs to be some sort of therapy noter stating pt needs to be in a SNU setting, and some work for upper extremity therapy. [facility] does get auth for pt's who are NWB, but with no therapy notes this is impossible. SW awaiting confirmation of whether pt can do upper extremity therapy, and awaiting therapy notes. PRICILA left voicemail with Ifrah at [facility] to determine if they are accepting pt at this time. PRICILA will continue to follow.
--- NOTE | 2020-01-30 10:59 | NUR ---
[employer] system down this morning. Per paper chart, patients last dose of Ancef was given by KRISTEN Alarcon at 0600.
[2020-01-30 11:00] VITALS: BP 100/49
--- NOTE | 2020-01-30 14:29 | PDOC ---
ORTHO PROGRESS NOTES Subjective No acute events. He tells me that his knee pain feels different today, not necessarily better or worse. Vitals Vital Signs Date Time Temp Pulse Resp B/P (MAP) Pulse Ox O2 Delivery O2 Flow Rate FiO2 01/30/20 13:40 98 Room Air 01/30/20 11:00 98.4 59 18 100/49 (66) 98.4 01/29/20 13:15 8 Notes He is awake and alert and lying in bed. Dressing is intact and fairly dry. Assessment and Plan From my standpoint, he can transfer, I do not want him using his legs for anything. No PT for lower extremities right now. He should be on anticoagulation. KURT ABDUL II, MD Jan 30, 2020 14:29
[2020-01-30 15:00] VITALS: BP 114/50
--- NOTE | 2020-01-30 18:05 | NUR ---
Spoke with Dr Balbuena this afternoon who stated to remove patients dressing and hemovac. Ordered to place Aquacel dressing. Dressing changed and an Aquacel was placed around 1800 without any complications noted. PT/OT ordered for patient. No therapy is to be done on the patients BLE at this time per Dr Balbuena but he is okay to transfer as needed. NWB to L[facility]. Patient updated and aware.
[2020-01-30 19:00] VITALS: BP 114/45
[2020-01-30 23:00] VITALS: BP 118/57
[2020-01-31 03:00] VITALS: BP 137/50
[2020-01-31] MEDS: HYDROcodone/APAP 10/325 1 TAB TABLET PO PRN ×3 (03:08→20:18)
[2020-01-31 07:00] VITALS: BP 137/62
[2020-01-31] MEDS: PANTOPRAZOLE 40 MG TABLET.DR. PO SCH (07:47)
[2020-01-31] MEDS: ENOXAPARIN 40 MG/0.4 ML SYRINGE. SQ SCH (07:51)
[2020-01-31] MEDS: DOXAZOSIN MESYLATE 4 MG TABLET. PO SCH (07:52)
--- NOTE | 2020-01-31 08:03 | PDOC ---
Provider Note Provider Note vss, no new sxs- transfer to snf next- Justicifation of Admission Dx: Justifications for Admission: Justification of Admission Dx: Yes Fracture: Fracture ADRIAN WEIR MD Jan 31, 2020 08:03
[2020-01-31 11:00] VITALS: BP 133/62
[2020-01-31] MEDS: CHOLECALCIFEROL (VITAMIN D3) 1,000 UNIT TABLET PO SCH (11:26)
[2020-01-31] MEDS: MULTIVITAMIN with MINERAL TABLET. PO SCH (11:26)
--- NOTE | 2020-01-31 12:07 | NUR ---
SW following. Discussed with RN, pt can transfer as needed and do UE therapy. SW awaiting therapy to work with pt so SNU referral can be faxed to [facility]. SW will continue to follow.
[2020-01-31 15:00] VITALS: BP 137/66
[2020-01-31 19:00] VITALS: BP 137/68
--- NOTE | 2020-01-31 20:19 | PDOC ---
ORTHO PROGRESS NOTES Subjective Pain better, "ache" today Vitals Vital Signs Date Time Temp Pulse Resp B/P (MAP) Pulse Ox O2 Delivery O2 Flow Rate FiO2 01/31/20 19:00 99.5 87 18 137/68 (91) 97 Room Air 99.5 Notes A and A in bed incision with small amount of drainage Assessment and Plan no new recs per Ortho agree with transfer to SNF when bed available KURT ABDUL II, MD Jan 31, 2020 20:19
[2020-01-31] MEDS: IBUPROFEN 400 MG TABLET. PO PRN (21:51)
[2020-01-31 23:22] VITALS: BP 99/70
[2020-02-01] MEDS: HYDROcodone/APAP 10/325 1 TAB TABLET PO PRN ×3 (02:44→21:56)
[2020-02-01 03:00] VITALS: BP 126/65
[2020-02-01] MEDS: PANTOPRAZOLE 40 MG TABLET.DR. PO SCH (05:22)
[2020-02-01] MEDS: IBUPROFEN 400 MG TABLET. PO PRN (05:23)
[2020-02-01 07:00] VITALS: BP 131/60
--- NOTE | 2020-02-01 07:55 | PDOC ---
Provider Note Provider Note vss, no temp, stable- pt eval then snf- xarelto for dvt proph Justicifation of Admission Dx: Justifications for Admission: Justification of Admission Dx: Yes Fracture: Fracture ADRIAN WEIR MD Feb 01, 2020 07:55
[2020-02-01] MEDS: DOXAZOSIN MESYLATE 4 MG TABLET. PO SCH (08:36)
[2020-02-01] MEDS: CHOLECALCIFEROL (VITAMIN D3) 1,000 UNIT TABLET PO SCH (08:36)
[2020-02-01] MEDS: MULTIVITAMIN with MINERAL TABLET. PO SCH (08:36)
--- NOTE | 2020-02-01 09:08 | NUR ---
PRICILA following. Discussed with RN, therapy is trying to get clarification from Dr. Balbuena about what pt is and is not allowed to do in therapy. PRICILA awaiting therapy notes to send SNU referral. Addendum: 02/01/20 at 1306 by JERMAIN MCNULTY PT/OT recommending SNU, PRICILA faxed referral to [facility] [place]. Awaiting fax machine to clear so can send to [facility]. PRICILA will continue to follow. Addendum: 02/01/20 at 1448 by JERMAIN MCNULTY Pt accepted at [facility], pending insurance approval. PRICILA will continue to follow.
[2020-02-01 11:00] VITALS: BP 129/56
[2020-02-01 15:00] VITALS: BP 119/74
[2020-02-01] MEDS: ANTI-COAG MONITOR BY PHARMACY. MC PRN ×2 (16:17→16:18)
[2020-02-01] MEDS: RIVAROXABAN 10 MG TABLET. PO SCH (17:17)
[2020-02-01 19:00] VITALS: BP 107/59
[2020-02-01 23:00] VITALS: BP 138/60
[2020-02-02] MEDS: HYDROcodone/APAP 10/325 1 TAB TABLET PO PRN ×3 (02:29→18:56)
[2020-02-02 03:00] VITALS: BP 114/54
[2020-02-02] MEDS: PANTOPRAZOLE 40 MG TABLET.DR. PO SCH (06:33)
[2020-02-02 07:00] VITALS: BP 142/63
[2020-02-02] MEDS: CHOLECALCIFEROL (VITAMIN D3) 1,000 UNIT TABLET PO SCH (08:14)
[2020-02-02] MEDS: DOXAZOSIN MESYLATE 4 MG TABLET. PO SCH (08:14)
[2020-02-02] MEDS: MULTIVITAMIN with MINERAL TABLET. PO SCH (08:14)
--- NOTE | 2020-02-02 08:18 | SNU/HH DC ---
DISCHARGE ORDERS DISCHARGE INFORMATION: CONDITION ON DISCHARGE: Stable CODE STATUS: Code Status: DNR/DNI SENIOR CARE: SNF STAY <30 DAYS: Yes POST DISCHARGE ORDERS: ACTIVITY ORDERS: Activity as tolerated WEIGHT BEARING STATUS: Other, see below DIET AFTER DISCHARGE: Regular CHECKS AFTER DISCHARGE: CHECKS AFTER DISCHARGE: Check your Temp as needed TREATMENT/EQUIPMENT ORDERS: ADAPTIVE EQUIPMENT NEEDED: None Physical Therapy For: Evalulation/Treatment Occupational Therapy For: Evaluation/Treatment DISCHARGE MEDICATIONS: Home Meds Active Scripts Guaifenesin (GUAIFENESIN) 100 Mg/5 Ml Liquid, 200 MG PO PRN Q4HRS PRN for COUGH for 5 Days, #100 ML Prov:SHEMAR SANDERS MD 09/01/19 Hydrocodone Bit/Acetaminophen (HYDROCODONE-APAP 10325 ) 1 Tab Tablet, 1 TAB PO PRN Q3HRS PRN for PAIN for 30 Days, #120 TAB Prov:JEANE STANFORD MD 08/23/19 Reported Medications Hydrochlorothiazide (HYDROCHLOROTHIAZIDE TABLET) 12.5 Mg Tablet, 1 TAB PO DAILY, #30 TAB 5 Refills 02/05/17 Doxazosin Mesylate (DOXAZOSIN MESYLATE) 8 Mg Tablet, 1 TAB PO DAILY, #30 TAB 5 Refills 02/05/17 ADRIAN WEIR MD Feb 02, 2020 08:18
--- NOTE | 2020-02-02 08:21 | PDOC ---
Provider Note Provider Note [id number] Justicifation of Admission Dx: Justifications for Admission: Justification of Admission Dx: Yes Fracture: Fracture ADRIAN WEIR MD Feb 02, 2020 08:21
--- NOTE | 2020-02-02 08:33 | DS ---
DATE OF DISCHARGE: 02/02/2020 HOSPITAL SUMMARY: A 79-year-old white male with previous known left distal femur fracture, came in after rehab stay with increasingly severe pain in the left distal femur area. Imaging showed impaction of the supracondylar fracture and no other abnormalities. Laboratory studies were unremarkable. COVID test was negative. He underwent operative repair, plating of the distal femur fracture per Dr. Balbuena and is doing better with his current pain control and going to rehab for further outpatient care. FINAL DIAGNOSES: Subacute fracture, impacted the distal left femur, supracondylar. OPERATION AND PROCEDURES. Operative repair of the supracondylar fracture. COMPLICATIONS: None. CONSULTATION: Dr. Balbuena. DISPOSITION: Discharge meds listed as same with the addition of Xarelto 10 mg daily for DVT prophylaxis. Rehab until he is able to be functional at home. Prognosis is guarded because of his polio syndrome and bilateral paraparesis. SARA KING MD DR: DARRYL/nts JOB#: [id number] / [id number]
--- NOTE | 2020-02-02 10:25 | NUR ---
SW following. Discussed with RN, discharge orders in for SNU. Pt accepted at [facility] pending insurance auth. PRICILA spoke with Stacie at [facility], they do not have auth yet. PRICILA will continue to follow. Addendum: 02/02/20 at 1516 by JERMAIN MCNULTY [facility] can take pt tomorrow if insurance approves. Call Irma [phone] to arrange discharge. PRICILA faxed discharge paperwork to [facility]. Left voicemail for Tiffany at [facility] requesting call back RE auth.
[2020-02-02 11:00] VITALS: BP 124/63
[2020-02-02 15:00] VITALS: BP 126/64
[2020-02-02] MEDS: RIVAROXABAN 10 MG TABLET. PO SCH (18:56)
[2020-02-02 19:00] VITALS: BP 124/98
[2020-02-02 23:00] VITALS: BP 126/58
[2020-02-03] MEDS: HYDROcodone/APAP 10/325 1 TAB TABLET PO PRN ×2 (02:44→22:21)
[2020-02-03 03:00] VITALS: BP 158/74
[2020-02-03 07:00] VITALS: BP 140/65
[2020-02-03] MEDS: DOXAZOSIN MESYLATE 4 MG TABLET. PO SCH (10:06)
[2020-02-03] MEDS: CHOLECALCIFEROL (VITAMIN D3) 1,000 UNIT TABLET PO SCH (10:06)
[2020-02-03] MEDS: MULTIVITAMIN with MINERAL TABLET. PO SCH (10:06)
[2020-02-03] MEDS: PANTOPRAZOLE 40 MG TABLET.DR. PO SCH (10:06)
[2020-02-03 11:00] VITALS: BP 132/52
--- NOTE | 2020-02-03 11:45 | NUR ---
Spoke with Irma from [facility], she stated that her facility has randomly tested for covid19 and came up with 3 positives. She cannot currently take additional admits to her facility at this time. Since all paperwork was submitted to this facility, Irma stated that she would forward patients record to their [facility] facility and put me in touch with the coordinator there. Pt will not discharge today unless we hear back from insurance, with approval.
[2020-02-03] MEDS: ANTI-COAG MONITOR BY PHARMACY. MC PRN (13:01)
[2020-02-03] MEDS: IBUPROFEN 400 MG TABLET. PO PRN (14:32)
[2020-02-03 15:00] VITALS: BP 122/76
[2020-02-03] MEDS: RIVAROXABAN 10 MG TABLET. PO SCH (17:11)
[2020-02-03 19:00] VITALS: BP 123/66
[2020-02-03 23:00] VITALS: BP 161/72
[2020-02-04 03:00] VITALS: BP 147/80
[2020-02-04] MEDS: HYDROcodone/APAP 10/325 1 TAB TABLET PO PRN ×5 (04:32→22:28)
[2020-02-04] MEDS: PANTOPRAZOLE 40 MG TABLET.DR. PO SCH (04:33)
[2020-02-04 07:00] VITALS: BP 140/70
[2020-02-04] MEDS: MULTIVITAMIN with MINERAL TABLET. PO SCH (09:13)
[2020-02-04] MEDS: DOXAZOSIN MESYLATE 4 MG TABLET. PO SCH (09:13)
[2020-02-04] MEDS: CHOLECALCIFEROL (VITAMIN D3) 1,000 UNIT TABLET PO SCH (09:13)
--- NOTE | 2020-02-04 09:50 | PDOC ---
GENERAL General: vss and afebrile. awake and alert. feels he is much better off than prior to castillo rgery mobility and pain morse and is refusing [facility] at [facility] due to covid. chest clear, heart regular, abdomen benign. can move legs fair in bed. VITAL SIGNS/I&O Vital Signs/I&O: Vital Signs Date Time Temp Pulse Resp B/P (MAP) Pulse Ox O2 Delivery O2 Flow Rate FiO2 02/04/20 09:13 Room Air 02/04/20 09:13 74 140/70 02/04/20 07:00 98.0 18 96 98.0 02/04/20 05:32 2.0 I & O 02/03/20 02/03/20 02/04/20 15:00 23:00 07:00 Intake Total 220 ml 480 ml Output Total 1000 ml 600 ml Balance -780 ml -120 ml ALLERGIES Allergies: Allergies Coded Allergies Type Severity Reaction Last Updated Verified No Known Drug Allergies 07/14/14 No Justicifation of Admission Dx: Justifications for Admission: Justification of Admission Dx: Yes Fracture: Fracture APPLJEANE MD Feb 04, 2020 09:50
[2020-02-04 11:00] VITALS: BP 119/65
[2020-02-04] MEDS: ANTI-COAG MONITOR BY PHARMACY. MC PRN (13:23)
[2020-02-04 15:00] VITALS: BP 124/68
[2020-02-04] MEDS: RIVAROXABAN 10 MG TABLET. PO SCH (17:37)
[2020-02-04 19:00] VITALS: BP 121/55
[2020-02-04 23:00] VITALS: BP 116/57
[2020-02-05 03:00] VITALS: BP 126/62
[2020-02-05] MEDS: HYDROcodone/APAP 10/325 1 TAB TABLET PO PRN ×3 (03:24→15:29)
[2020-02-05 07:00] VITALS: BP 136/61
[2020-02-05] MEDS: DOXAZOSIN MESYLATE 4 MG TABLET. PO SCH (09:04)
[2020-02-05] MEDS: PANTOPRAZOLE 40 MG TABLET.DR. PO SCH (09:04)
[2020-02-05] MEDS: MULTIVITAMIN with MINERAL TABLET. PO SCH (09:04)
[2020-02-05] MEDS: CHOLECALCIFEROL (VITAMIN D3) 1,000 UNIT TABLET PO SCH (09:04)
[2020-02-05 11:32] VITALS: BP 111/60
--- NOTE | 2020-02-05 13:57 | NUR ---
Dr. Hutchison paged re: d/c to [facility] refusal over the weekend and possible d/c home with HH.
[2020-02-05 15:15] VITALS: BP 119/63
--- NOTE | 2020-02-05 15:30 | NUR ---
Contacted PRICILA Reed re: poss. d/c home with HH today. She stated she would get with pt re: plan.
--- NOTE | 2020-02-05 15:36 | NUR ---
Dr. Hutchison paged re: pt's d/c orders . Pt. wants to go home with HH, refused SNU.
--- NOTE | 2020-02-05 16:36 | NUR ---
Xarelto 10mg PO qd x 10 days called to pt's pharmacy, [facility] [phone]. Spoke with Emanuel.
[2020-02-05] MEDS: RIVAROXABAN 10 MG TABLET. PO SCH (17:14)
--- NOTE | 2020-02-05 17:23 | NUR ---
PRICILA following. Spoke with RN and reviewed chart. Pt ready for discharge today, 02/05/2020. Pt refusing SNU and requesting referral to [place]. PRICILA phoned and faxed HH referral to [facility], , (fax). Pt to transport home by EMS at 7pm via stretcher. PRICILA phoned and faxed completed Certification of Medical Necessity form to [employer], , (fax). Pt on room air. Pt on oral medications. No further PRICILA needs at this time. Addendum: 02/06/20 at 1035 by LD MCNULTY Phone call from [facility] [place] [facility] stating they can't staff for this pt. [facility] for pt at [phone]. PRICILA phoned and faxed referral to [facility], , (fax) as they take pt's insurance. Addendum: 02/06/20 at 1724 by LD MCNULTY Kayli from [email or web address] called to say they accepted this pt for HH. PRICILA LVM for Dr. Hutchison at his office and on his cell phone to update and request that he fax HH orders to [email or web address] at [phone]. Kayli stated she will also follow up with Dr. Hutchison's office for orders.
--- NOTE | 2020-02-05 20:16 | NUR ---
Discharge Note: [facility] [place] Discharge instructions and discharge home medications reviewed with patient and a copy given. All questions have been answered and understanding verbalized. Patient escorted by EMS and left unit at approximately 1925. Patient discharged home with home health via EMS.
== END 2020-02-05 19:25 | disposition home health service (06) | DRG 481 ==
LOC: ER 09:20 → 4 NORTH 11:53
PROVIDERS: ADMIT Family Medicine; ATTEND Family Medicine
PROC: 0QSC04Z Reposition Left Lower Femur with Internal Fixation Device, Open Approach (ICD-10-PCS; principal; 2020-01-29 12:15)
DX: S72.452A Displaced supracondylar fracture without intracondylar extension of lower end of left femur, initial encounter for closed fracture (principal); G82.20 Paraplegia, unspecified; E11.9 Type 2 diabetes mellitus without complications; E78.5 Hyperlipidemia, unspecified; G14 Postpolio syndrome; I10 Essential (primary) hypertension; F41.9 Anxiety disorder, unspecified; K21.9 Gastro-esophageal reflux disease without esophagitis; M19.90 Unspecified osteoarthritis, unspecified site; Z60.2 Problems related to living alone; Z66 Do not resuscitate; X58.XXXA Exposure to other specified factors, initial encounter; M10.9 Gout, unspecified; Z82.49 Family history of ischemic heart disease and other diseases of the circulatory system; Z87.891 Personal history of nicotine dependence; Z90.49 Acquired absence of other specified parts of digestive tract; Z79.899 Other long term (current) drug therapy; Y93.89 Activity, other specified; Y92.89 Other specified places as the place of occurrence of the external cause; Y99.8 Other external cause status; Z20.828 Contact with and (suspected) exposure to other viral communicable diseases
CPT/HCPCS: 36415; 73502; 73552; 73560; 76000; 80053; 85025; A7015; C1713; J0690; J1100; J1170; J1650; J1885; J2370; J2405; J2704; J3010; J3480; J3490; J7030; J7120; 97530-GO; 97535-GO; 99285-25; G0378; U0003-CS